=== PATIENT | male | born 1970 | race Caucasian/White ===

== ENCOUNTER 2016-12-06 19:55 | Emergency (ER) | payer OTHER ==
[~2016-12-06] VITALS: Ht 195.6 cm; Wt 113.6 kg
[2016-12-06 20:03] VITALS: BP 111/74; PULSE 84; RESP 20; O2SAT 98
--- NOTE | 2016-12-06 21:06 | DRSVH ---
PROCEDURE: X-RAY LEFT WRIST COMPLETE, MINIMUM THREE VIEWS ([id number]) INDICATIONS: cut w/pruning sheers TECHNIQUE: 4 views of the wrist were acquired. COMPARISON: None. FINDINGS: Bones: No fractures or dislocations. No suspicious bony lesions. Scaphoid view: Scaphoid is intact. Soft tissues: No suspicious soft tissue calcifications. IMPRESSION: No fracture or dislocation. No opaque foreign body. Dictated by: Nia Bryant M.D. on 12/06/2016 at 21:03 Approved by: Nia Bryant M.D. on 12/06/2016 at 21:04
--- NOTE | 2016-12-06 21:33 | ED.REPORT ---
HPI-Extremity Problem Upper Date of Service Dec 06, 2016 ED Provider: Dr. Wall 46 y/o male with no pertinent hx presents to the ED complaining of left hand laceration, onset just prior to arrival. The pt was cutting grass with mary when he cut his hand by accident. He states "it looked like a white tube was sticking out of the either end". Associated sx include tingling along the palmar side of the thumb. He denies any numbness in the left hand. He is right handed. Nursing Notes Stated Complaint: LACERATION LEFT HAND Chief Complaint: Laceration Nursing Notes Reviewed: Yes Allergies: Coded Allergies: No Known Allergies (Verified Allergy, Severe, 07/15/05) General Time Seen by MD: 21:32 Chief Complaint Hand Injury left Hx Obtained From: Patient Arrived By: Walk-in Onset Occurred: Just prior to arrival Symptom Duration: Since onset Location: : Hand left Quality: Painful Severity: Current: Mild Severity: Maximum: Moderate Recent Healthcare: No recent doctor visit Similar Sx Previous: No Past Medical History Past Medical History right lower extremity varicose veins Past Surgical History none reported Smoking History Unknown if Ever Smoker Ambulatory Status Independent Review of Systems Reports: laceration on the left hand Complete sys rev & neg: except as marked. Physical Exam Initial Vital Signs Vital Signs (First) Date Time Temp Pulse Resp B/P Pulse Ox O2 Delivery O2 Flow Rate FiO2 12/06/16 20:03 36.0 84 20 111/74 98 Room Air Initial VS: Reviewed Head / Eyes: Atraumatic, Normocephalic Neck: Supple, Non-tender, Full range of motion Respiratory: Breath sounds normal, No respiratory distress Lower Extremities: Vascular intact, Neuro intact, No swelling, No tenderness Skin: Warm, Dry, No cyanosis Neurologic: Alert, Oriented, Nonfocal General/Constitutional: Awake, Alert, No acute distress Cardiovascular: Heart rate NL, Regular rhythm, Heart sounds NL, Cap refill not delayed, Pulses = bilaterally Upper Extremity / MS: Atraumatic, Inspection NL, Full range of motion, No swelling, Non-tender, No deformity, Neurologic intact, Vascular intact Wrist / Hand: Atraumatic, Full range of motion, Neurologic intact, Vascular intact 1.5cm laceration on dorsum of left wrist on the radial side. Tingling along the palmar side of the thumb. Interpretation & Diagnostics X-Ray Interpretation Xray Interpretation: IMPRESSION: No fracture or dislocation. No opaque foreign body. Dictated by: Nia Bryant M.D. on 12/06/2016 at 21:03 Approved by: Nia Bryant M.D. on 12/06/2016 at 21:04 X-Ray Ordered: Wrist left Interpretation / Wet Read by: Interpret - Radiologist Procedures Laceration Management Laceration Management: Dorsum of left wrist on the radial side Time: 21:44 Procedure Performed by: ED physician Consent / Setup / Site Prep: Informed consent provided, Consent from patient , Time-out performed, Hand hygiene observed, Stand sterile technique Wound Length: 1 cm (1.5cm) Local Anesthesia: Lidocaine 1% Digital Block: No Wound Preparation: Betadine Debridement: None Irrigation: Copious (500mls) Foreign Body Explore / Removal: Explored for foreign body # Sutures - Skin: 5 Repair Subcutaneous: Nylon (4O) Closure Layers: 1 Suture Technique: Mattress (vertical mattress) Post-Procedure / Complications: Antibiotic oint applied, Dressing applied, No complications, Condition improved, Tolerated procedure well, Patient stable Re-Eval/Medical Decision Med Decision/Clinical Course 46-year-old sustained a laceration on the dorsal hand. Exploration did not reveal any deep structures involved, but he has some tingling distally without complete loss of sensation, suggesting he may have interacted with the local nerve supply. Vascularity appears intact. Close as detailed above after high pressure saline lavage. Return day eight or nine for suture removal. Discharged in stable improved condition. Re-Evaluation/Progress : Time of Eval: 21:53 Patient Status: Condition improved Re-Evaluation/Progress Note: Rechecked pt. Discussed imaging results, diagnosis and plan to discharge. Pt understands and agrees with the plan. F/U instructions and RTER warning given. All questions addressed. Counseled Regarding: Diagnosis, Need for follow-up, When/why to return to ED Discharge & Departure Impression: Primary Impression: Laceration Disposition: Home Discharge Condition All VS Reviewed: Yes Condition: Stable Additional Instructions: Apply bacitracin ointment 3-4 times daily to the suture line and cover with a clean fresh bandage. You may wash it is needed then pat dry and redress. Do not soak. Return day eight or nine for suture removal. Return sooner for any signs of infection, excessive swelling, discharge, pus, or redness. Referrals: Kalin nA MD (PCP) Scribe Attestation Portions of this note were transcribed by Arminda Lara. I, , personally performed the history, physical exam and medical decision- making;I reviewed and confirmed the accuracy of the information in the transcribed note. Signed by Dorcas Monahan. 12/06/16 22:10 copies to: Kalin An MD, Christopher W MD Dec 06, 2016 21:33 Arminda Lara Dec 06, 2016 21:39
[2016-12-06 22:22] VITALS: BP 107/65
[2016-12-06 22:23] VITALS: BP 107/65; PULSE 70; RESP 16; O2SAT 96
== END 2016-12-06 22:23 | disposition home or self-care (01) ==
LOC: SED 19:55
DX: S61.412A Laceration without foreign body of left hand, initial encounter (principal); W27.2XXA Contact with scissors, initial encounter; Y93.H2 Activity, gardening and landscaping; Y92.89 Other specified places as the place of occurrence of the external cause; Y99.8 Other external cause status

== ENCOUNTER 2016-12-14 12:31 | Emergency (ER) | payer OTHER ==
[2016-12-14 12:43] VITALS: BP 127/77; PULSE 92; RESP 18; O2SAT 97
--- NOTE | 2016-12-14 12:48 | ED.REPORT ---
HPI-Extremity Problem Upper Date of Service Dec 14, 2016 ED Provider: Antoni Solomon MD Patient is an otherwise healthy 46 year old male who presents to the ED complaining of redness surrounding his sutures on his L hand. He denies fevers, swelling, or any other symptoms. Nursing Notes Stated Complaint: SUTURE REMOVAL Chief Complaint: Staple/Suture Removal Nursing Notes Reviewed: Yes Allergies: Coded Allergies: No Known Allergies (Verified Allergy, Severe, 07/15/05) General Time Seen by MD: 12:47 Chief Complaint Other (Suture removal) Hx Obtained From: Patient Arrived By: Walk-in Recent Healthcare: Recent doctor visit Past Medical History Past Medical History right lower extremity varicose veins Past Surgical History none reported Smoking History Unknown if Ever Smoker Ambulatory Status Independent Review of Systems Review of Systems Note: +redness surrounding sutures Constitutional: Denies: Fever Musculoskeletal: Denies: Extremity swelling Complete sys rev & neg: except as marked. Physical Exam Initial Vital Signs Vital Signs (First) Date Time Temp Pulse Resp B/P Pulse Ox O2 Delivery O2 Flow Rate FiO2 12/14/16 12:43 36.7 92 18 127/77 97 Room Air Initial VS: Reviewed, Vital signs normal General/Constitutional: Well-developed, Well-nourished Head / Eyes: Atraumatic, Normocephalic Neck: Full range of motion Respiratory: No respiratory distress Cardiovascular: Intact distal pulses Skin: Warm, Dry Neurologic: Alert, Oriented, Nonfocal Psychiatric: Mood/affect normal, Behavior normal, Normal thought content Wrist / Hand: No swelling, No deformity, Neurologic intact, Vascular intact mild erythema surrounding sutures proximal to L thumb 2 cm lac with 3 nylon sutures Re-Eval/Medical Decision Med Decision/Clinical Course Patient is a generally healthy 46-year-old male who presents for suture removal and wound check. He is concerned that there may be infection. Examination reveals a well healing wound about the hand just proximal to his left thumb. There is some very mild erythema about the skin margins consistent with normal healing. There is no induration, swelling, purulent discharge or signs of abscess/cellulitis. The wound appears to be healing normally. He is neurovascularly intact distal to the wound. He is afebrile with stable vital signs in no apparent distress. Sutures were removed. I feel that he is appropriate for discharge. He is advised to return right away if he develops increasing swelling, redness, warmth, fevers, pain or other concerning signs or symptoms. Prior to discharge follow-up and return precautions were reviewed in detail with the patient who verbalized understanding and agreement with the plan. The patient was discharged in stable condition. Re-Evaluation/Progress : Time of Eval: 12:59 Re-Evaluation/Progress Note: Discussed plan for discharge. Patient understands and agrees with plan. All questions addressed at this time Counseled Regarding: Diagnosis, Need for follow-up, When/why to return to ED Discharge & Departure Impression: Primary Impression: Laceration of hand Encounter type: subsequent encounter Foreign body presence: without foreign body Laterality: left Qualified Code: S61.412D - Laceration without foreign body of left hand, subsequent encounter Additional Impressions: Visit for suture removal Visit for wound check Disposition: Home Discharge Condition All VS Reviewed: Yes Condition: Improved Additional Instructions: Thank you for seeking care at the emergency room. The redness were your sutures are is normal. Our primary goal today in the ED was to evaluate you for any life-threatening conditions. Your evaluation was reassuring. You should follow-up with your primary doctor in the next week. You should return to the ED immediately if you develop increasing redness, swelling, fevers, vomiting, cough, shortness of breath, chest pain, lightheadedness, weakness or any other concerning signs or symptoms. Thank you for letting us partake in your care today. Referrals: Kalin An MD (PCP) Scribe Attestation Portions of this note were transcribed by Ana Cristina Lozano. I, Dr. Solomon personally performed the history, physical exam and medical decision-making; I reviewed and confirmed the accuracy of the information in the transcribed note. Signed by: Ana Cristina Lozano 12/14/16, 3313 copies to: Kalin An MD, Beck O MD Dec 14, 2016 12:48 ANA CRISTINA LOZANO Dec 14, 2016 12:58
== END 2016-12-14 13:00 | disposition home or self-care (01) ==
LOC: SED 12:31
DX: S61.412D Laceration without foreign body of left hand, subsequent encounter (principal); W26.9XXD Contact with unspecified sharp object(s), subsequent encounter; Y93.9 Activity, unspecified; Y99.8 Other external cause status; Y92.9 Unspecified place or not applicable